=== PATIENT | male | born 1990 | race Hispanic/Latino ===

== ENCOUNTER 2018-02-12 18:26 | Inpatient (IN) | payer MEDICAID, OTHER ==
[2018-02-12 18:42] VITALS: BMI 21.2
[2018-02-12 19:54] LABS: SQUAMOUS EPITHIAL < 1 /hpf (0-5); URINE BACTERIA RARE (<OCC); URINE BILIRUBIN NEGATIVE (NEGATIVE); URINE BLOOD NEGATIVE (NEGATIVE); URINE CLARITY Clear (Clear); URINE COLOR Yellow (YELLOW); URINE GLUCOSE (UA) NORMAL (Normal); URINE LEUKOCYTE ESTERASE NEG Leu/uL (Negative); URINE PROTEIN NEGATIVE (NEGATIVE); URINE UROBILINOGEN NORMAL mg/dL (0.2-1.0)
[2018-02-12 20:02] LABS: BARBITURATES, UR NEGATIVE (NEGATIVE); BENZODIAZEPINES, UR NEGATIVE (NEGATIVE); PHENCYCLIDINE, UR NEGATIVE (NEGATIVE)
[2018-02-12 20:10] LABS: OPIATES, UR POSITIVE (NEGATIVE)
[2018-02-12 20:25] LABS: BASO % 0.3 % (0.0-2.0); EOS % 0.3 % (0.0-4.0); HEMOGLOBIN 15.3 g/dL (12.0-18.0); LYMPH # 1.6 K/uL (1.0-4.3); LYMPH % 20.9 % (20.0-40.0); MEAN CORPUSCULAR HEMOGLOBIN 30.3 pg (27.0-31.0); MEAN CORPUSCULAR HGB CONC 33.8 g/dL (33.0-37.0); MEAN PLATELET VOLUME 7.4 fL (7.2-11.7); MONO # 0.6 K/uL (0.0-0.8); MONO % 7.2 % (0.0-10.0); NEUT # 5.5 K/uL (1.8-7.0); NEUT % 71.3 % (50.0-75.0); RBC 5.05 Mil/uL (4.40-5.90); RED CELL DISTRIBUTION WIDTH 13.5 % (11.5-14.5); WHITE BLOOD COUNT 7.7 K/uL (4.8-10.8)
[2018-02-12 20:43] LABS: MEAN CELL VOLUME 89.5 fL (80.0-94.0)
--- NOTE | 2018-02-12 20:45 | C.PDOC ---
History Of Present Illness 27 y/o male comes in requesting heroin detox. Patient is prescreened. States last use was today. Denies SI. Has no physical complaints. Time Seen by Provider: 02/12/18 19:22 Chief Complaint (Nursing): Substance Abuse History Per: Patient History/Exam Limitations: no limitations Onset/Duration Of Symptoms: Days Current Symptoms Are (Timing): Still Present Past Medical History Reviewed: Historical Data, Nursing Documentation, Vital Signs Vital Signs: Last Vital Signs Temp 98 F 02/12/18 18:43 Pulse 84 02/12/18 18:43 Resp 18 02/12/18 18:43 BP 147/78 02/12/18 18:43 Pulse Ox 99 02/12/18 18:43 - Medical History PMH: Hepatitis (Patient reported he thinks he has Hep C.) Denies: Diabetes (Patient denied), HIV (Patient denied), HTN (Patient denied), Seizures (Patient denied), Sexually Transmitted Disease (Patient de nied) Surgical History: Back Surgery - [facility] Procedures DRUG ADDICT COUNSELLING (09/10/14) DRUG DETOXIFICATION (09/10/14) Family History: States: No Known Family Hx - Social History Hx Alcohol Use: Yes Hx Substance Use: Yes (heroin, cocaine) - Immunization History Hx Tetanus Toxoid Vaccination: Yes Hx Influenza Vaccination: Yes Hx Pneumococcal Vaccination: Yes Review Of Systems Except As Marked, All Systems Reviewed And Found Negative. Physical Exam - Physical Exam Appears: Non-toxic, No Acute Distress Skin: Warm, Dry Head: Atraumatic, Normacephalic Eye(s): bilateral: Normal Inspection Oral Mucosa: Moist Neck: Supple Cardiovascular: Rhythm Regular, No Murmur Respiratory: No Rales, No Rhonchi, No Wheezing Extremity: Other (Track kline on arms) Extremity: Bilateral: Normal ROM Neurological/Psych: Oriented x3, Normal Speech ED Course And Treatment - Laboratory Results Result Diagrams: 02/12/18 20:21 02/12/18 20:21 Lab Results: Urine Color Yellow (YELLOW) 02/12/18 19:36 Urine Clarity Clear (Clear) 02/12/18 19:36 Urine pH 7.0 (5.0-8.0) 02/12/18 19:36 Ur Specific Morven 1.023 (1.003-1.030) 02/12/18 19:36 Urine Protein Negative mg/dL (NEGATIVE) 02/12/18 19:36 Urine Glucose (UA) Normal mg/dL (Normal) 02/12/18 19:36 Urine Ketones Negative mg/dL (NEGATIVE) 02/12/18 19:36 Urine Blood Negative (NEGATIVE) 02/12/18 19:36 Urine Nitrate Negative (NEGATIVE) 02/12/18 19:36 Urine Bilirubin Negative (NEGATIVE) 02/12/18 19:36 Urine Urobilinogen Normal mg/dL (0.2-1.0) 02/12/18 19:36 Ur Leukocyte Esterase Neg Chrissy/uL (Negative) 02/12/18 19:36 Urine WBC (Auto) < 1 /hpf (0-5) 02/12/18 19:36 Urine RBC (Auto) 1 /hpf (0-3) 02/12/18 19:36 Ur Squamous Epith Cells < 1 /hpf (0-5) 02/12/18 19:36 Urine Bacteria Rare (<OCC) 02/12/18 19:36 O2 Sat by Pulse Oximetry: 99 (RA) Pulse Ox Interpretation: Normal Medical Decision Making Medical Decision Making: Impression: Substance abuse Plan: --Bloodwork --UA 2057 - Patient is medically cleared. Disposition Discussed With Dr.: Aaron Thomas Doctor Will See Patient In The: Hospital Counseled Patient/Family Regarding: Studies Performed, Diagnosis - Disposition Disposition: HOSPITALIZED Disposition Time: 21:31 Condition: FAIR Forms: [facility] (Wallisian) - Clinical Impression Clinical Impression: Drug abuse - Scribe Statement The provider has reviewed the documentation as recorded by the Mariela Turner Provider Attestation: All medical record entries made by the Mariela were at my direction and personally dictated by me. I have reviewed the chart and agree that the record accurately reflects my personal performance of the history, physical exam, medical decision making, and the department course for this patient. I have also personally directed, reviewed, and agree with the discharge instructions and disposition.
[2018-02-12 20:46] LABS: ALB/GLOB RATIO 1.3 (1.0-2.1); ALBUMIN 4.8 g/dL (3.5-5.0); ALT/SGPT 127 U/L (21-72); AST/SGOT 71 U/L (17-59); BLOOD UREA NITROGEN 9 mg/dL (9-20); CALCIUM 9.6 mg/dl (8.6-10.4); GFR NON-AFRICAN AMERICAN > 60
[2018-02-12] MEDS ORDERED: Benzocaine/Menthol (Cepacol) Lozenge PO PRN (23:43)
--- NOTE | 2018-02-13 06:47 | PCM.BM ---
<Maria Dolores Rucker Rosales - Last Filed: 02/13/18 06:45> Treatment Plan Problems - Problems identified on initial assessmt Defensive Date Initiated: 02/13/18 Time Initiated: 00:00 Assessment reference: NA Status: Active Denial Date Initiated: 02/13/18 Time Initiated: 00:00 Assessment reference: NA Status: Active Low Motivation to Change Date Initiated: 02/13/18 Time Initiated: 00:00 Assessment reference: NA Status: Active Treatment assets and liabiliti Patient Assests: ADL independent Patient Liabilities: substance abuse - Milieu Protocol Maintain good personal hygiene: daily Encourage regular showers, daily Remind patient to perform daily oral care, daily Assist patient to perform ADL's Maintain personal safety: every shift Educate patient to report safety concerns to staff, every shift Monitor environment for contraband/sharps Medication safety: Monitor for expected outcome, potential side effects: every shift, Assess barriers to learning: every shift, Assess readiness for medication education: every shift <Evita Jerry - Last Filed: 02/14/18 14:51> - Diagnosis (1) Benzodiazepine dependence Status: Acute Interventions: 02/14/18 14:51 * Assess 7x/week regarding severity of withdrawal * Educate regarding risks, benefits, side effects and alternatives of medications * Use Motivational Interviewing for abstinence * Use CBT for relapse prevention * Medication management for withdrawal symptoms * Encourage medication assisted treatment * (2) Opiate dependence Status: Acute Interventions: 02/14/18 14:51 * Assess 7x/week regarding severity of withdrawal * Educate regarding risks, benefits, side effects and alternatives of medications * Use Motivational Interviewing for abstinence * Use CBT for relapse prevention * Medication management for withdrawal symptoms * Encourage medication assisted treatment *
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
[2018-02-14] MEDS: Aluminum Hydroxide/Magnesium Hydroxide Susp (30 mL) PO PRN ×2 (11:28→18:08)
--- NOTE | 2018-02-14 11:51 | PCM.PYCHPN ---
Psychiatric Progress Note - Psychiatric Progress Note Patient seen today, length of contact: 15 Patient Chief Complaint: I need to get clean from heroin. Problems Identified/Issues Discussed: Patient states he does not feel well. Patient reports abdominal discomfort Patient reports chills, cold sweats, nausea. The pt is seen, chart reviewed, case discussed with staff. The pt is compliant with medications and reports no side-effects. Symptoms are improving but needs more time to stabilize. Pt attends groups and activities. Support given, psycho-education provided. After care discussed. Medication Change: Yes Medical Record Reviewed: Yes Mental Status Examination - Cognitive Function Orientation: Person, Place, Situation, Time Memory: Intact Attention: WNL Concentration: WNL Association: WNL Fund of Knowledge: WNL - Affect Affect: Broad - Speech Speech: Appropriate - Formal Thought Process Formal Thought Process: No Impairment - Suicidal Ideation Suicidal Ideation: No - Homicidal Ideation Homicidal Ideation: No Goal/Treatment Plan - Goal/Treatment Plan Need for Continued Stay: Discharge may exacerbated symptoms Progress Toward Problem(s) and Goals/Treatment Plan: Continue Taper with Methadone Additional methadone 5mg AM & PM Nicotine patch Remeron 15 mg PO HS Gabapentin 300 mg PO TID As needed medications All risks, benefits and alternatives of the meds discussed, and the pt agreed and understood. Attend groups and activities Supportive therapy and psychoeducation [place] for abstinence CBT for relapse prevention Encourage MAT Refer to rehab or IOP, and self-help groups Teach healthy lifestyle methods, i.e. diet, exercise, meditation Smoking cessation with [place] - Smoking Cessation Smoking Cessation Initiated: Yes
--- NOTE | 2018-02-15 11:31 | PCM.PYCHPN ---
Psychiatric Progress Note - Psychiatric Progress Note Patient seen today, length of contact: 16 min Medication Change: Yes Medical Record Reviewed: Yes Mental Status Examination - Cognitive Function Orientation: Person, Place, Situation, Time Memory: Intact Attention: WNL Concentration: WNL Association: WNL Fund of Knowledge: WNL - Affect Affect: Broad - Speech Speech: Appropriate - Formal Thought Process Formal Thought Process: No Impairment - Suicidal Ideation Suicidal Ideation: No - Homicidal Ideation Homicidal Ideation: No Goal/Treatment Plan - Goal/Treatment Plan Need for Continued Stay: Discharge may exacerbated symptoms
[2018-02-15] MEDS: Aluminum Hydroxide/Magnesium Hydroxide Susp (30 mL) PO PRN ×2 (13:17→21:47)
[2018-02-16] MEDS: Aluminum Hydroxide/Magnesium Hydroxide Susp (30 mL) PO PRN ×2 (11:34→20:12)
[2018-02-16 14:56] LABS: HEPATITIS B SURFACE AG Negative (NEGATIVE)
[2018-02-16 15:02] LABS: HEPATITIS A IGM NEGATIVE (NEGATIVE); HEPATITIS B CORE AB NEGATIVE (NEGATIVE)
[2018-02-16 16:57] LABS: HEPATITIS C ANTIBODY REACTIVE (NEGATIVE)
[2018-02-18] MEDS: Aluminum Hydroxide/Magnesium Hydroxide Susp (30 mL) PO PRN (08:04)
--- NOTE | 2018-02-18 09:04 | PCM.PYCHDC ---
Mental Status Examination - Mental Status Examination Orientation: Person Discharge Summary - Discharge Note Laboratory Data: Hep C is diagnosed first time. He will follow up with GI Consultations:: List each consultation separately and include: 1. Reason for request. 2. Findings. 3. Follow-up Summary of Hospital Course include:: 1. Description of specific treatment plan utilized for patients during their course of treatmen. 2. Summarize the time- course for resolution of acute symptoms and/or regressed behaviors. 3. Describe issues identified and worked on during hospitalization. 4. Describe medication utilized. 5. Describe medical problems identified and treated. 6. Reassessment of suicide risk Summary of Hospital Course: He will go to [facility] for Vivitrol shot but he also wants to join the . - Diagnosis (1) Benzodiazepine dependence Current Visit: No Status: Acute (2) Opiate dependence Current Visit: No Status: Acute - Final Diagnosis (DSM 5) Condition upon Discharge: FAIR Disposition: HOME/ ROUTINE Prescriptions/Medication Reconciliation: Gabapentin [Neurontin] 300 mg PO TID #90 cap hydrOXYzine HCl [Atarax] 25 mg PO DAILY PRN #30 tab PRN Reason: Anxiety Mirtazapine [Remeron] 15 mg PO HS #30 tab
[2018-02-18 09:58] VITALS: BP 135/82; PULSE 79; RESP 18; TEMP 98.5; O2SAT 98
== END 2018-02-18 09:45 | disposition home or self-care (01) | DRG 744 ==
LOC: C.ER 18:26 → C.7D 21:31
PROVIDERS: ADMIT Psychiatry & Neurology Psychiatry; ATTEND Psychiatry & Neurology Psychiatry
PROC: HZ2ZZZZ Detoxification Services for Substance Abuse Treatment (ICD-10-PCS; principal; 2018-02-12)
PROC: HZ52ZZZ Individual Psychotherapy for Substance Abuse Treatment, Cognitive-Behavioral (ICD-10-PCS; 2018-02-12)
PROC: HZ59ZZZ Individual Psychotherapy for Substance Abuse Treatment, Supportive (ICD-10-PCS; 2018-02-12)
PROC: HZ56ZZZ Individual Psychotherapy for Substance Abuse Treatment, Psychoeducation (ICD-10-PCS; 2018-02-12)
PROC: HZ42ZZZ Group Counseling for Substance Abuse Treatment, Cognitive-Behavioral (ICD-10-PCS; 2018-02-12)
PROC: HZ46ZZZ Group Counseling for Substance Abuse Treatment, Psychoeducation (ICD-10-PCS; 2018-02-12)
PROC: GZHZZZZ Group Psychotherapy (ICD-10-PCS; 2018-02-12)
PROC: GZ58ZZZ Individual Psychotherapy, Cognitive-Behavioral (ICD-10-PCS; 2018-02-12)
PROC: GZ56ZZZ Individual Psychotherapy, Supportive (ICD-10-PCS; 2018-02-12)
DX: F11.23 Opioid dependence with withdrawal (principal); B19.20 Unspecified viral hepatitis C without hepatic coma; F13.20 Sedative, hypnotic or anxiolytic dependence, uncomplicated; F14.20 Cocaine dependence, uncomplicated; F17.210 Nicotine dependence, cigarettes, uncomplicated; F41.9 Anxiety disorder, unspecified